=== PATIENT | male | born 1940 | race Two or more races ===

== ENCOUNTER 2020-02-25 07:21 | Outpatient (CLI) | payer OTHER | END 2020-02-25 07:31 | disposition home or self-care (01) | LOC: NUCLEAR 07:21 | PROVIDERS: ATTEND Internal Medicine Cardiovascular Disease | DX: I20.8 Other forms of angina pectoris (principal); I25.6 Silent myocardial ischemia | CPT/HCPCS: 78452; 93017; A9500 ==